=== PATIENT | male | born 1960 | race African-American/Black ===

== ENCOUNTER → 2020-11-13 | Day surgery (SDC) | payer OTHER ==
[~2020-11-13] MED LIST: CARVEDILOL25 MG PO; ENTRESTO 97 MG1 EACH PO; FUROSEMIDE 40 M40 MG PO; KLOR-CON 10 ER10 MEQ PO; LIPITOR40 MG PO
--- NOTE | ~2020-11-13 | PROC ---
[address] [address] PROCEDURE REPORT Name: PAT CORONA Room: [facility].#: [id number] Admission: 11/13/20 Attend Phys: Gunnar Machado DO Discharge: Date of : 64 Report #: [id number] THIS REPORT FOR: cc: Rae Hickey MD, Tuongvan T. MD [facility],Medical Records Staff ~ For GI report, please see the Provation report in Perceptive 7 cotent. By: 1112Medical Records Staff [facility] /GOPAL
[2020-11-13 09:21] LABS: HEMATOCRIT 52.2 % (42.0-52.0); HEMOGLOBIN 17.6 gm/dL (14.0-18.0); MCH 29.2 pg (26.0-34.0); MCHC 33.7 g/dL (28.0-37.0); MCV 86.8 fL (80.0-100.0); MPV 8.2 fl. (7.2-11.1); RBC 6.01 mil/uL (4.50-6.00); RDW-CV 14.2 % (10.5-14.5); WBC 5.6 thou/uL (4.0-11.0)
[2020-11-13 09:29] LABS: CREATININE 1.2 mg/dL (0.6-1.3); POTASSIUM 3.8 mmol/L (3.5-5.1)
--- NOTE | 2020-11-15 14:07 | PATH ---
[facility] [address] [place] [address] PATHOLOGY RPT PROCEDURE Name: EZEQUIEL KAUR Room: [facility]..#: [id number] Admission: 11/13/20 Date of : 64 Discharge: Report #: [id number] Path Case #: [id number] [facility] Accession Number: [id number] . 01 Material submitted: . PART A: colon - PROXIMAL ASCENDING COLON POLYP. Modifiers: proximal, ascending PART B: colon - MID ASCENDING COLON POLYP. Modifiers: mid, ascending PART C: colon - MID TRANSVERSE COLON POLYP. Modifiers: mid, transverse PART D: colon - DISTAL TRANSVERSE COLON POLYP. Modifiers: distal, transverse PART E: rectum - RECTAL POLYP . 01 Clinical history: . COLONOSCOPY COLON CANCER SCREENING, FM HISTORY OF COLON CANCER . 02 Diagnosis: A. Proximal ascending colon polyp: - Tubular adenoma, negative for high grade dysplasia. . B. Mid ascending colon polyp; - Tubular adenoma, negative for high grade dysplasia. . C. Mid transverse colon polyp: - Tubular adenoma, negative for high grade dysplasia. . D. Distal transverse colon polyp: - Tubular adenoma, negative for high grade dysplasia. . E. Rectal polyp: - Hyperplastic polyp. . (JOESPH:mmester; 11/15/2020) QLM 11/15/2020 1212 Local . 02 Electronically signed: . Wyatt Willingham MD, Pathologist NPI- [id number] . 01 Gross description: . A. The specimen is received in formalin, labeled "Ezequiel Kaur, proximal ascending colon polyp". Received is a segment of pale black tissue measuring 0.5 cm in maximum dimensions. The specimen is submitted entirely in cassette A1. . B. The specimen is received in formalin, labeled "Ezequiel Kaur, mid ascending colon polyp". Received is a segment of pale black tissue measuring [facility] [address] [place] [address] PATHOLOGY RPT PROCEDURE Name: VINCENTEZEQUIEL MARY Room: [facility]#: [id number] Admission: 11/13/20 Date of : 64 Discharge: Report #: [id number] Path Case #: [id number] 0.3 cm in maximum dimensions. The specimen is submitted entirely in cassette B1. . C. The specimen is received in formalin, labeled "Ezequiel Kaur, mid transverse colon polyp". Received is a segment of pale blcak tissue measuring 0.5 cm in maximum dimensions. The specimen is submitted entirely in cassette C1. . D. The specimen is received in formalin, labeled "Vincent, Ezequiel, distal transverse polyp". Received are 2 segments of pale black tissue along with mucoid material ranging in size from 0.3 to 0.4 cm in maximum dimensions. The specimen is submitted entirely in cassette D1. . E. The specimen is received in formalin, labeled "Vincent, Ezequiel, rectal polyp". Received is a segment of pale black tissue measuring 0.3 cm in maximum dimensions. The specimen is submitted entirely in cassette E1.([facility]; 11/14/2020) [facility] 11/14/2020 1040 Local . 02 Pathologist provided ICD-10: D12.2, D12.3, K62.1 . 02 CPT . 130205, [id number], [id number], [id number], [id number] Specimen Comment: A courtesy copy of this report has been sent to [phone], [phone] Specimen Comment: [id number] Specimen Comment: Report sent to / DR AGUIRRE Performed at: 01 [facility] [address], [place], [place] [id number] MD Cristofer Alford MD Phone: [phone] Performed at: 02 [facility] [address], [place], [place] [id number] MD Wyatt Willingham MD Phone: [phone]
== END | disposition home or self-care (01) ==
LOC: M.SUR 08:51
PROVIDERS: Anesthesiology; ATTEND Internal Medicine Gastroenterology
DX: Z12.11 Encounter for screening for malignant neoplasm of colon (principal); Z80.0 Family history of malignant neoplasm of digestive organs; D12.2 Benign neoplasm of ascending colon; D12.3 Benign neoplasm of transverse colon; K62.1 Rectal polyp; I11.0 Hypertensive heart disease with heart failure; I50.9 Heart failure, unspecified; J45.909 Unspecified asthma, uncomplicated; Z98.890 Other specified postprocedural states; Z79.899 Other long term (current) drug therapy; Z20.822 Contact with and (suspected) exposure to COVID-19